=== PATIENT | male | born 1990 | race Asian ===

== ENCOUNTER 2017-07-30 15:43 | Emergency (ER) | payer OTHER ==
[~2017-07-30] VITALS: Ht 182.9 cm; Wt 93.0 kg
[~2017-07-30 15:43] MED LIST: BUPR75TA3 PO; CLON1TAB PO; DIAZ10TA PO; HYDR-3028 PO; PRAZ2CAP2 PO; VENL150C2 PO
[2017-07-30 15:51] VITALS: BP 153/107
[2017-07-30] MEDS ORDERED: predniSONE 20 MG TABLET ONE (16:28)
[2017-07-30] MEDS ORDERED: predniSONE 20 MG TABLET PO ONE (16:30)
== END 2017-07-30 16:35 | disposition home or self-care (01) ==
LOC: ER 15:46
DX: J20.9 Acute bronchitis, unspecified (principal); I10 Essential (primary) hypertension; F41.9 Anxiety disorder, unspecified; F32.9 Major depressive disorder, single episode, unspecified; Z85.71 Personal history of Hodgkin lymphoma; Z79.899 Other long term (current) drug therapy; Z60.2 Problems related to living alone
CPT/HCPCS: 71010; 99284; A4606; J7512; Z7610

== ENCOUNTER 2019-05-10 19:31 | Emergency (ER) | payer OTHER ==
[~2019-05-10] VITALS: Ht 188 cm; Wt 83.9 kg
[2019-05-10 19:34] VITALS: BP 145/102
[2019-05-10] MEDS ORDERED: PROCHLORPERAZINE MALEATE 10 MG TABLET ONE (19:51)
--- NOTE | 2019-05-10 19:55 | NUR ---
PT MEDICATED ORDERED.
[2019-05-10] MEDS ORDERED: PROCHLORPERAZINE MALEATE 10 MG TABLET PO ONE (20:00)
== END 2019-05-10 20:31 | disposition home or self-care (01) ==
LOC: ER 19:31
DX: R11.2 Nausea with vomiting, unspecified (principal); G40.909 Epilepsy, unspecified, not intractable, without status epilepticus; I10 Essential (primary) hypertension; F32.9 Major depressive disorder, single episode, unspecified; F41.9 Anxiety disorder, unspecified; Z85.72 Personal history of non-Hodgkin lymphomas; M79.7 Fibromyalgia; Z60.2 Problems related to living alone; Z79.899 Other long term (current) drug therapy
CPT/HCPCS: 99283; Q0164